=== PATIENT | female | born 1970 | race Caucasian/White ===

== ENCOUNTER 2020-06-17 07:48 | Emergency (ER) | payer BC | END 2020-06-17 09:49 | disposition home or self-care (01) | LOC: JVIRT 07:48 | DX: Z11.59 Encounter for screening for other viral diseases (principal) | CPT/HCPCS: C9803; G2012-GT; Q3014-GT; U0003 ==

== ENCOUNTER 2020-10-16 15:41 | Emergency (ER) | payer BC | END 2020-10-16 18:45 | disposition home or self-care (01) | LOC: JVIRT 15:41 | DX: Z03.818 Encounter for observation for suspected exposure to other biological agents ruled out (principal) | CPT/HCPCS: C9803; G2012-GT; U0003 ==